=== PATIENT | female | born 1995 | race Caucasian/White ===

== ENCOUNTER 2018-06-07 01:29 | Emergency (ER) | payer MEDICAID ==
[~2018-06-07] VITALS: Ht 167.6 cm; Wt 71.2 kg
[2018-06-07 01:33] VITALS: Ht 167.6 cm; Wt 71.2 kg
[2018-06-07 04:22] VITALS: BP 105/62
== END 2018-06-07 04:22 | disposition home or self-care (01) ==
LOC: ED 01:29
DX: L23.9 Allergic contact dermatitis, unspecified cause (principal)
CPT/HCPCS: J2930; Q0163